=== PATIENT | female | born 1950 | race Caucasian/White ===

== ENCOUNTER 2018-08-28 05:31 | Observation (INO) ==
[2018-08-28] MEDS ORDERED: Metoprolol Tartrate 25 MG Tablet PO ONE (06:26)
[2018-08-28] MEDS ORDERED: Chlorhexidine Gluconate 2% 1 Pack (2 Cloths) TOPICAL ONE (06:26)
[2018-08-28] MEDS ORDERED: Heparin - SQ 10,000 UNITS/ML Vial SQ SCH (06:30)
[2018-08-28] MEDS ORDERED: Sodium Chlor 0.9% Inj 500 ML IV.SIG SCH (07:00)
[2018-08-28] MEDS ORDERED: Levofloxacin 500 mg Premix Inj 500 MG/100 ML PIGGYBACK IV.SIG SCH (07:00)
[2018-08-28] MEDS ORDERED: Sodium Chlor 0.9% Inj 500 ML IV.CONT ONE (07:29)
[2018-08-28] MEDS ORDERED: Lidocaine PF 1% Inj 5 ML Syringe OTHER ONE (07:29)
[2018-08-28] MEDS ORDERED: Normosol-R pH 7.4 Inj 1,000 ML IV.CONT ONE (07:29)
[2018-08-28] MEDS ORDERED: fentaNYL Citrate Inj 100 MCG/2 ML Ampul ONE (10:25)
[2018-08-28] MEDS ORDERED: Sugammadex Inj 200 MG/2 ML Vial IV.PUSH ONE (10:26)
[2018-08-28] MEDS ORDERED: LORazepam 0.5 MG Tablet PO PRN (10:44)
[2018-08-28] MEDS ORDERED: *morphine SULFATE 4 MG/ML PERIprocedure ONLY ONE (11:15)
[2018-08-28] MEDS ORDERED: Ketorolac Inj 30 MG/ML (IVP) Vial ONE (11:16)
[2018-08-28] MEDS: Ketorolac Inj 30 MG/ML (IVP) Vial IV.PUSH SCH ×3 (11:20→23:54)
[2018-08-28] MEDS: KCL 20 mEq/D5W/NaCl 0.45% Inj 1,000 ML IV.CONT SCH ×2 (11:40→20:59)
--- NOTE | 2018-08-28 16:26 | P.PNONC ---
Subjective Interval history: patient resting in bed seen in PACU awaiting bed placement drinking clear liquids denies n/v pain controlled Objective Vital Signs/Intake & Output: Vital Signs 08/28/18 06:37 08/28/18 10:57 08/28/18 11:15 Temperature 98.5 F 97.3 F L Pulse Rate 83 69 59 L Respiratory Rate 18 15 15 Blood Pressure 177/76 H 99/62 L 125/64 Pulse Oximetry 94 L 99 99 08/28/18 11:30 08/28/18 11:45 08/28/18 11:50 Temperature Pulse Rate 57 L 57 L Respiratory Rate 17 17 Blood Pressure 123/60 123/60 Pulse Oximetry 99 98 99 08/28/18 12:00 08/28/18 12:30 08/28/18 12:46 Temperature Pulse Rate 56 L 92 H Respiratory Rate 18 18 Blood Pressure 122/57 L 128/81 Pulse Oximetry 99 95 97 08/28/18 13:00 08/28/18 14:00 Temperature Pulse Rate 82 58 L Respiratory Rate 18 18 Blood Pressure 127/75 110/85 Pulse Oximetry 95 99 Intake & Output 08/27/18 08/28/18 08/28/18 18:59 06:59 18:59 Intake Total 1600 / 1600 Output Total 350 / 350 Balance 1250 / 1250 Weight 106.6 kg Intake: Anesthesia Amount 1600 / 1600 Output: Estimated Blood Loss 75 / 75 Urine Amount (Catheter) 275 / 275 Indwelling Urethral Catheter 275 / 275 Other: Weight On Admission 106.6 kg Laboratory Results: Laboratory Results - last 24 hr 08/28/18 06:26 Blood Type A Positive Blood Type Recheck Required Antibody Screen Negative Medications: Active Medications Generic Name Dose Route Start Last Admin Trade Name Freq PRN Reason Stop Dose Admin Heparin Sodium (Porcine) 5,000 units 08/28/18 06:30 08/28/18 06:34 Heparin Inj SQ 08/28/18 18:00 5,000 units MICROBIOLOGICAL LABORATORY TECHNICIAN OPAL Administration Lactated Ringer's 1,000 mls @ 30 mls/hr 08/28/18 06:30 08/28/18 06:25 Lr 1000 Ml Inj IV.SIG 08/29/18 06:29 30 mls/hr .Q24H OPAL Administration Potassium Chloride/Dextrose/Sod Cl 1,000 mls @ 100 mls/hr 08/28/18 10:45 11:40 D5w/1/2ns + Kcl 20 Meq Inj IV.CONT 100 mls/hr .Q10H OPAL Administration Ketorolac Tromethamine 15 mg 08/28/18 12:00 08/28/18 11:20 Toradol Inj IV.PUSH 08/29/18 06:01 15 mg Q6HR OPAL Administration Objective Remarks: GENERAL: Well-nourished, well-developed patient. SKIN: Warm and dry. HEAD: Normocephalic. EYES: No scleral icterus. No injection or drainage. CARDIOVASCULAR: Regular rate and rhythm without murmurs. RESPIRATORY: No accessory muscle use. GASTROINTESTINAL: Abdomen soft, non-tender, nondistended. SS are c/d/i EXTREMITIES: teds and scds MUSCULOSKELETAL: Adequate muscle tone. NEUROLOGICAL: No obvious focal deficit. Awake, alert, and oriented x3. PSYCHIATRIC: Appropriate mood and affect; insight and judgment normal. Assessment/Plan - Plan s/p RA Lap hyst with BSO post op orders in chart OOB to chair with assistance ADAT Toradol as scheduled and Percocet PRN anticipate discharge in the next 24 hours encourage intake
[2018-08-28] MEDS ORDERED: amLODIPine 5 MG Tablet PO SCH (21:00)
[2018-08-29] MEDS: Ketorolac Inj 30 MG/ML (IVP) Vial IV.PUSH SCH (05:17)
[2018-08-29 05:44] VITALS: O2SAT 97
[2018-08-29 07:40] LABS: Hematocrit 37.8 % (35.0-46.0); Hemoglobin 12.5 gm/dL (11.6-15.3); Mean Corpuscular Hemoglobin 28.2 pg (27.0-34.0); Mean Corpuscular Volume 85.5 fL (80.0-100.0); Mean Platelet Volume 9.4 fL (7.0-11.0); Neut % (Auto) 85.2 % (16.0-70.0); Platelet Count 313 th/mm3 (150-450); Red Blood Count 4.42 mil/mm3 (4.00-5.30); Red Cell Distribution Width 15.5 % (11.6-17.2)
[2018-08-29 07:41] LABS: Baso % (Auto) 0.1 % (0.0-2.0); Lymph # (Auto) 1.2 th/mm3 (1.0-4.8); Lymph % (Auto) 8.6 % (9.0-44.0); Mono # (Auto) 0.9 th/mm3 (0.0-0.9); Mono % (Auto) 6.1 % (0.0-8.0); Neut # (Auto) 11.9 th/mm3 (1.8-7.7)
[2018-08-29 07:58] LABS: Calcium 8.6 mg/dL (8.5-10.1); Carbon Dioxide 29.4 meq/L (21.0-32.0); Potassium 4.2 meq/L (3.5-5.1)
[2018-08-29 08:59] VITALS: BP 177/76; PULSE 93; RESP 18; TEMP 97.7
[2018-08-29] MEDS ORDERED: Atenolol 50 MG Tablet PO SCH (09:00)
--- NOTE | 2018-08-29 09:53 | MP ---
cc: Alona Garcia MD, Jamie Dilley, Frances DATE OF OPERATION: 08/28/2018 PREOPERATIVE DIAGNOSIS: Grade I endometrial cancer. POSTOPERATIVE DIAGNOSES: 1. Grade I endometrial cancer. 2. Pelvic adhesions. PROCEDURE PERFORMED: Robotic-assisted laparoscopic hysterectomy, bilateral salpingo-oophorectomy, lysis of pelvic adhesions. SURGEON: Alona Garcia MD. DYE REEL OPERATOR HELPER: [employer] media assistant. ANESTHESIA: General endotracheal anesthesia. ESTIMATED BLOOD LOSS: 75 mL. IV FLUIDS: 1600 mL. URINE OUTPUT: 200 mL. HISTORY: A 68-year-old female with postmenopausal bleeding, thickened endometrial stripe with biopsy. Biopsy showed grade I endometrial cancer. She was counseled regarding options, was in favor of surgical management, and presents now for that endeavor. She was seen again in the preop holding area accompanied by her family where the findings and plan of care are again discussed. Questions were asked and answered. She expressed good understanding and was in favor of moving forward with surgery. FINDINGS: Uterine cavity sounded to 7 cm. She is status post prior tubal ligation. Otherwise, the tubes, ovaries, and uterus grossly appeared normal. There was no appreciably enlarged pelvic or paraaortic lymph nodes. The peritoneal surfaces were smooth and there were no implants on the liver, diaphragm edge. The omentum was grossly normal. The large and small bowel and adjacent mesentery appeared normal without tumor implants. The uterus, once removed, showed superficial tumor with no obvious evidence of tumor invasion. There were some changes suggesting that she may have undergone endometrial ablation in recent times consistent with her history. In the pelvis, there were fairly significant adhesions. The colon was adherent to the left pelvic sidewall that was overlying the left pelvic sidewall structures. There were some diverticulum suggesting possibly prior diverticulitis with no evidence of active infection. STATEMENT OF COMPLEXITY/MODIFIER: Complexity of the case was increased due to body habitus with a BMI of 44, as well as pelvic adhesions requiring additional time for lysis of adhesions to gain safe sex access to the pelvis, restore normal anatomy, and accomplish the surgical objectives. Modifier should be applied accordingly. DESCRIPTION OF PROCEDURE: She was taken to the operating room and placed in dorsal lithotomy position, after general endotracheal anesthesia was administered. A timeout was undertaken. She was identified by site recognition and hospital ID bracelet and the proposed procedure was reviewed and confirmed. She was carefully positioned in padded Royce stirrups. Her arms were padded and secured to the sides. She was further secured to the operating table with egg crate padding and tape in a crossed chest [id number] fashion. All sites noted to be properly aligned with no malalignment or pressure points. She was prepped and draped in usual sterile fashion and placed in lithotomy position. The cervix grasped. Uterine cavity sounded and cervix dilated. Large VCare manipulator inserted and secured in usual fashion. Patel catheter placed in the bladder. She was returned to the low lithotomy position and note is made that the entire room and all equipment was set up in a latex-free environment. We confirmed she had an orogastric tube in the stomach on suction. With manual elevation of the abdominal wall and direct laparoscopic visualization, a 5 mm cannula was placed in the left upper quadrant. Carbon dioxide gas was insufflated. Under laparoscopic visualization, 8 mm cannulas were placed in the right upper quadrant and left lateral quadrant and a 12 mm cannula placed in midline above the umbilicus. She was placed in Trendelenburg position. Peritoneal washings were obtained for cytology. The anatomy was surveyed with findings as described above. The small bowel was folded back on its mesenteric root. Three Ray-Olga sponges were placed around the root of the small bowel mesentery and the robotic system was brought into the operative field and attached in the usual fashion. Monopolar scissors, fenestrated bipolar forceps, and ProGrasp manipulators placed in arms #1, 2, and 3 respectively and I took my place at the surgeon's console. The right round ligament was isolated, cauterized, transected. The anterior and posterior leafs of the broad ligament were opened. The right ureter was identified. The right infundibulopelvic ligament was isolated. The intervening peritoneum was opened. The infundibulopelvic ligament was isolated to the level of the pelvic brim where it was cauterized and transected. Posterior peritoneum opened along the right side of the uterus and cervix and the right and vesicouterine peritoneum dissected off the lower uterine segment and cervix. The right uterine vessels were skeletonized. The right uterine vessels were then cauterized and transected as were the cardinal, paracervical, and uterosacral ligaments. Attention was directed toward the left side where retroperitoneal dissection was initiated. Lysis of adhesions was required to mobilize the colon that was densely adherent to the left pelvic sidewall. A sharp dissection was used to mobilize the colon and to free it from its attachments in the cul-de-sac and free attachments from the adnexal structures and left pelvic sidewall. The left round ligament was isolated, cauterized, and transected. The anterior and posterior leaf of the broad ligament were opened. Left ureter was identified. The left infundibulopelvic ligament was isolated. The intervening peritoneum was opened. The infundibulopelvic ligament was isolated to the level of the pelvic brim where it was cauterized and transected. Posterior peritoneum opened along the left side of the uterus and cervix and the left vesicouterine peritoneum dissected off the lower uterine segment and cervix. Left uterine vessels were skeletonized, cauterized, and transected as were the cardinal, paracervical, and uterosacral ligaments. Colpotomy was performed the cervix from the upper vagina and the specimen was delivered transvaginally which included uterus, cervix, tubes, and ovaries; and a pneumo occluder balloon was placed in the vagina to maintain pneumoperitoneum. Instruments 1 and 3 exchanged for needle drivers as #0 Vicryl suture was introduced. Vaginal cuff was closed starting at the left corner with full-thickness closure, incorporating the edge of the uterosacral ligament and the posterior peritoneum. Closure was held on countertraction as a running continuous full-thickness closure was carried across the vaginal apex to the contralateral corner who were similarly fixed, secured, tied, and the needle was cut and removed. Inspection and irrigation revealed all sites to be hemostatic. There was a good margin between the bladder edge and the vaginal cuff suture line. Good peristalsis of ureters. There were serosal irritation, possibly superficial serosal separation on the sigmoid colon, likely from retraction; and this was oversewn with interrupted 3-0 Vicryl sutures tied securely. The needle was cut and removed. Pelvis and abdomen were again thoroughly irrigated. All sites hemostatic. Pathology came back showing no invasive cancer, so it was felt that all reasonable surgical objectives had been completed. Accordingly, the robotic instruments were removed. The robotic system was disengaged from the operative field and I reentered the bedside under sterile condition. Each of the 3 Ray-Intrallect sponges had been placed were now removed individually through the 12 mm cannula. Each were inspected and noted to be removed in their entirety. Visual inspection confirmed there were no remaining foreign objects in the peritoneal cavity and preliminary counts were correct. The 12 mm fascial defect was closed with #0 Vicryl sutures interrupted using a fascia closure needle pass apparatus. They were tied securely, returning the fascia completely airtight and hemostatic. The remaining cannulas were withdrawn. Carbon dioxide gas was removed from the peritoneal cavity. Then 3-0 Vicryl subcutaneous, 3-0 Vicryl subcuticular, and Steri-Strips were used to close these incisions. She was returned to dorsal lithotomy position. Pelvic exam confirmed there were no remaining foreign objects in the vagina. Vaginal cuff suture line was intact and was hemostatic. There were no vaginal lacerations. Final counts were correct. She was returned to dorsal supine position and was pending reversal of anesthesia, when I left the operating room to precede her to the postanesthesia care unit. MD NIKKO De La Cruz/dami , 08:07 AM , 08:21 AM
--- NOTE | 2018-08-29 10:27 | MD ---
cc: Alona Garcia MD, James FISH GRADER ArletteValencia L DATE OF DISCHARGE: 08/29/2018 PROCEDURE: On 08/28/2018, robotic-assisted laparoscopic hysterectomy, bilateral salpingo-oophorectomy, lysis of adhesions. DIAGNOSIS: Endometrial cancer. HOSPITAL COURSE: She did well in the early postoperative period, she remained hemodynamically stable, tolerated oral intake. Patel catheter removed pending voiding ins and outs 4200/2350. Labs show an H and H of 12.5 and 37.8. Electrolytes are pending. PHYSICAL EXAMINATION: VITAL SIGNS: Afebrile, pulse 94-96, respirations 16-18, blood pressure 165-185/79-83, O2 saturations greater than or equal to 93% while asleep, 97% while awake, alert and oriented x3. LUNGS: Clear. Mild basilar rales. CARDIOVASCULAR: Regular rate and rhythm. ABDOMEN: Soft. Incisions clean and dry. GYNECOLOGIC: No bleeding. EXTREMITIES: Nontender. ASSESSMENT: Postoperative day number #1, doing well in early postop period. Findings at the time of surgery, steps taken and preliminary pathology discussed. Activities and restrictions are again reviewed. Questions were asked and answered. She expressed good understanding. PLAN: I anticipate she will meet criteria for discharge to home today. She is to contact our office to schedule a followup in 2 weeks. She is to resume prior medication. She will have a prescription for Percocet and our office numbers again made available should she have any questions or problems between now and the time of scheduled followup. MD NIKKO De La Cruz/katie , 07:58 AM , 08:03 AM
== END 2018-08-29 09:18 | disposition home or self-care (01) ==
LOC: HSDI 05:31 → HOR 05:31 → HCIN 17:23
PROVIDERS: ADMIT Obstetrics & Gynecology Gynecologic Oncology; ATTEND Obstetrics & Gynecology Gynecologic Oncology